=== PATIENT | female | born 1975 | race American Indian/Alaskan Native ===

== ENCOUNTER 2018-01-19 10:10 | Emergency (ER) | payer OTHER ==
[2018-01-19 10:17] VITALS: BP 144/92
--- NOTE | 2018-01-19 10:48 | Emergency Department Report ---
ED General Adult HPI - General Chief complaint: High BP Stated complaint: HEADACHE/HYPERTENSIVE Time Seen by Provider: 01/19/18 10:32 Source: patient Mode of arrival: Ambulatory Limitations: No Limitations - History of Present Illness Initial comments: Patient is a 42-year-old female who was diagnosed with borderline hypertension several years ago but is not on any meds. Patient states she went to work yesterday and after arrival she started having some tension type headache and bilateral frontal and temporal area. Patient states the headache was approximately a 4 out of 10 and is has improved since. 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 Patient denies any chest pain shortness of breath fevers chills nausea vomiting at this time. - Related Data Previous Rx's Medication Instructions Recorded Last Taken Type Amlodipine Besylate [Norvasc] 5 mg PO DAILY #30 tablet 01/19/18 Unknown Rx Allergies Allergy/AdvReac Type Severity Reaction Status Date / Time No Known Allergies Allergy Unverified 01/19/18 10:12 ED Review of Systems ROS: Stated complaint: HEADACHE/HYPERTENSIVE Other details as noted in HPI Comment: All other systems reviewed and negative ED Past Medical Hx - Past Medical History Previous Medical History?: No - Surgical History Past Surgical History?: Yes Hx Cholecystectomy: Yes (2006) Additional Surgical History: tubal ligation 1999 - Social History Smoking Status: Current Every Day Smoker Substance Use Type: Alcohol - Medications Home Medications: Home Medications Medication Instructions Recorded Confirmed Last Taken Type Amlodipine Besylate [Norvasc] 5 mg PO DAILY #30 tablet 01/19/18 Unknown Rx ED Physical Exam - General Limitations: No Limitations General appearance: alert, in no apparent distress - Head Head exam: Present: atraumatic, normocephalic - Eye Eye exam: Present: normal appearance - ENT ENT exam: Present: mucous membranes moist - Neck Neck exam: Present: normal inspection - Respiratory Respiratory exam: Present: normal lung sounds bilaterally. Absent: respiratory distress, wheezes, rales, rhonchi - Cardiovascular Cardiovascular Exam: Present: regular rate, normal rhythm. Absent: systolic murmur, diastolic murmur, rubs, gallop - GI/Abdominal GI/Abdominal exam: Present: soft, normal bowel sounds. Absent: distended, tenderness, guarding - Extremities Exam Extremities exam: Present: normal inspection - Back Exam Back exam: Present: normal inspection - Neurological Exam Neurological exam: Present: alert, oriented X3 - Psychiatric Psychiatric exam: Present: normal affect, normal mood - Skin Skin exam: Present: warm, dry, intact, normal color. Absent: rash ED Course Vital Signs 01/19/18 10:12 Temperature 98.8 F Pulse Rate 91 H Respiratory 16 Rate Blood Pressure 144/92 O2 Sat by Pulse 100 Oximetry ED Medical Decision Making - Medical Decision Making Patient states she is on admission appointment to see primary care physician in approximately 2 weeks and patient will be started on Norvasc 5 mg have her blood pressure rechecked at that time. Critical care attestation.: If time is entered above; I have spent that time in minutes in the direct care of this critically ill patient, excluding procedure time. ED Disposition Clinical Impression: Hypertensive urgency Disposition: DC-01 TO HOME OR SELFCARE Is pt being admited?: No Does the pt Need Aspirin: No Condition: Stable Prescriptions: Amlodipine Besylate [Norvasc] 5 mg PO DAILY #30 tablet Referrals: PRIMARY CARE, [Primary Care Provider] - 7-10 days
== END 2018-01-19 10:48 | disposition home or self-care (01) ==
LOC: ED 10:10
DX: I10 Essential (primary) hypertension (principal); F17.200 Nicotine dependence, unspecified, uncomplicated; Z98.51 Tubal ligation status; Z90.49 Acquired absence of other specified parts of digestive tract
CPT/HCPCS: 99282

== ENCOUNTER 2019-02-20 09:02 | Emergency (ER) | payer OTHER ==
[2019-02-20] MEDS ORDERED: IBUPROFEN PO ONE (09:34)
--- NOTE | 2019-02-20 10:16 | Emergency Department Report ---
ED Lower Extremity HPI - General Chief Complaint: Extremity Injury, Lower Stated Complaint: TWISTE LT ANKLE Time Seen by Provider: 02/20/19 09:33 Source: patient Mode of arrival: Ambulatory Limitations: No Limitations - History of Present Illness Initial Comments: 43 0 female presents to the emergency room complaining of right ankle pain after twisting her ankle and falling. Patient reports a small abrasion to the outer side of her ankle. Patient denies any fever or chills no nausea no vomiting. Patient is able to ambulate but with pain. Patient has past medical history of hypertension currently on lisinopril. It was noted the patient's blood pressure was elevated at 169/107. MD Complaint: ankle injury -: This morning Injury: Ankle: Right Type of Injury: inversion Place: street/outdoors Severity scale (0 -10): 8 Improves With: immobilization Worsens With: weight bearing Other Symptoms: loss of consciousness - Related Data Previous Rx's Medication Instructions Recorded Last Taken Type Amlodipine Besylate [Norvasc] 5 mg PO DAILY #30 tablet 02/20/19 Unknown Rx Ibuprofen [Motrin 600 MG tab] 600 mg PO Q8H PRN #15 tablet 02/20/19 Unknown Rx Allergies Allergy/AdvReac Type Severity Reaction Status Date / Time No Known Allergies Allergy Unverified 01/19/18 10:12 ED Review of Systems ROS: Stated complaint: TWISTE LT ANKLE Other details as noted in HPI Comment: All other systems reviewed and negative ED Past Medical Hx - Past Medical History Previous Medical History?: Yes Hx Hypertension: Yes - Surgical History Past Surgical History?: Yes Hx Cholecystectomy: Yes (2006) Additional Surgical History: tubal ligation 1999. right lumpectomy - Social History Smoking Status: Current Every Day Smoker Substance Use Type: None - Medications Home Medications: Home Medications Medication Instructions Recorded Confirmed Last Taken Type Amlodipine Besylate [Norvasc] 5 mg PO DAILY #30 tablet 02/20/19 Unknown Rx Ibuprofen [Motrin 600 MG tab] 600 mg PO Q8H PRN #15 tablet 02/20/19 Unknown Rx ED Physical Exam - General Limitations: No Limitations General appearance: alert, in no apparent distress - Head Head exam: Present: atraumatic, normocephalic - Eye Eye exam: Present: normal appearance - ENT ENT exam: Present: mucous membranes moist - Neck Neck exam: Present: normal inspection, full ROM - Expanded Lower Extremity Exam Right Hip exam: Present: full ROM, tenderness Knee exam: Present: normal inspection Ankle exam: Present: full ROM, tenderness (lateral malleolus), swelling (lateral malleolus) Neuro vascular tendon exam: Present: no vascular compromise ED Course Vital Signs 02/20/19 09:07 Temperature 98.5 F Pulse Rate 93 H Respiratory 18 Rate Blood Pressure 169/107 O2 Sat by Pulse 100 Oximetry ED Lower Extremity MDM - Radiology Data Radiology results: report reviewed Patient: SANFORD SMITH MR#: [id number] : 1975 Acct:[id number] Age/Sex: 43 / F ADM Date: 02/20/19 Loc: ED Attending Dr: Ordering Physician: SHERWIN LACKEY Date of Service: 02/20/19 Procedure(s): XR ankle 2V RT Accession Number(s): [id number] cc: SHERWIN LACKEY Fluoro Time In Minutes: RIGHT ANKLE, 2 VIEWS INDICATION: Acute ankle pain and swelling from twisting.. COMPARISON: None. IMPRESSION: Mild lateral soft tissue swelling is suspected. No acute osseous abnormality is identified. Moderate plantar spur is noted. No significant DJD. Signer Name: Harinder Berger Jr, MD Signed: 02/20/2019 10:27 AM Workstation Name: [id number] Transcribed By: TTR Dictated By: HARINDER BERGER JR, MD Electronically Authenticated By: HARINDER BERGER JR, MD Signed Date/Time: 02/20/19 1027 DD/ 1024 TD/TT: - Medical Decision Making Patient has been evaluated by this provider fast accident 43-year-old female comes in for right ankle pain after twisting her ankle and falling. X-ray is ordered pain medication has been ordered. Results from x-ray.. Critical care attestation.: If time is entered above; I have spent that time in minutes in the direct care of this critically ill patient, excluding procedure time. ED Disposition Clinical Impression: Moderate right ankle sprain, HTN, goal below 130/80 Disposition: DC-01 TO HOME OR SELFCARE Is pt being admited?: No Does the pt Need Aspirin: No Condition: Stable Instructions: Ankle Sprain (ED), Ankle Stirrup Splint (ED), Hypertension (ED) Additional Instructions: Take pain medication as needed. Well-nourished stirrup for your ankle. Follow- up with orthopedic provider if his symptoms persist or gets worse. Prescriptions: Ibuprofen [Motrin 600 MG tab] 600 mg PO Q8H PRN #15 tablet PRN Reason: Pain , Severe (7-10) Amlodipine Besylate [Norvasc] 5 mg PO DAILY #30 tablet Referrals: MAUDE JIMÉNEZ MD [Primary Care Provider] - 3-5 Days CARLIE PARK MD [Staff Physician] - 3-5 Days Forms: Work/School Release Form(ED)
--- NOTE | 2019-02-20 10:31 | XRay Report ---
RIGHT ANKLE, 2 VIEWS INDICATION: Acute ankle pain and swelling from twisting.. COMPARISON: None. IMPRESSION: Mild lateral soft tissue swelling is suspected. No acute osseous abnormality is identifi ed. Moderate plantar spur is noted. No significant DJD. Signer Name: Harinder Berger Jr, MD Signed: 02/20/2019 10:27 AM Workstation Name: [id number]
[2019-02-20 10:47] VITALS: BP 157/95
== END 2019-02-20 10:47 | disposition home or self-care (01) ==
LOC: ED 09:02
DX: S93.401A Sprain of unspecified ligament of right ankle, initial encounter (principal); I10 Essential (primary) hypertension; F17.200 Nicotine dependence, unspecified, uncomplicated; Z79.1 Long term (current) use of non-steroidal anti-inflammatories (NSAID); Z90.49 Acquired absence of other specified parts of digestive tract; Z98.51 Tubal ligation status; Z98.890 Other specified postprocedural states; W01.198A Fall on same level from slipping, tripping and stumbling with subsequent striking against other object, initial encounter; Y93.89 Activity, other specified; Y92.488 Other paved roadways as the place of occurrence of the external cause; Y99.8 Other external cause status
CPT/HCPCS: 99283

== ENCOUNTER 2020-02-21 07:45 | Emergency (ER) | payer OTHER ==
[2020-02-21 07:55] VITALS: BP 165/108
--- NOTE | 2020-02-21 08:30 | XRay Report ---
RIGHT ANKLE 3 VIEWS 8:10 AM INDICATION: trauma, pain, swelling. COMPARISON: One year prior FINDINGS: There is diffuse soft tissue swelling, greatest laterally. No acute, displaced fracture or dislocatio n is seen. Tibiotalar joint effusion is noted. No foreign bodies. IMPRESSION: 1. Soft tissue swelling. No acute fracture is seen. Signer Name: Aaron Gonzales MD Signed: 02/21/2020 8:25 AM Workstation Name: [id number]
--- NOTE | 2020-02-21 09:23 | Emergency Department Report ---
ED Extremity Problem HPI - General Chief complaint: Extremity Injury, Lower Stated complaint: RIGHT ANKLE PAIN Time Seen by Provider: 02/21/20 09:11 Source: patient Mode of arrival: Ambulatory Limitations: No Limitations - History of Present Illness Initial comments: 44-year-old female with a past medical history of hypertension (noncompliant with meds x30 days) and previous right ankle injury presents to the hospital planing of pain and swelling to right ankle x3 days. Patient had accidental inversion injury while walking 3 days ago. She has had pain and swelling since. She has been attempting ice, heat, ambulated with crutches, and trying to rest the extremity without improvement. Patient took Motrin 600 mg prior to arrival which has been helping with pain at home. - Related Data Previous Rx's Medication Instructions Recorded Last Taken Type Amlodipine Besylate [Norvasc] 5 mg PO DAILY #30 tablet 02/21/20 Unknown Rx Ibuprofen [Motrin 600 MG tab] 600 mg PO Q8H PRN #20 tablet 02/21/20 Unknown Rx Allergies Allergy/AdvReac Type Severity Reaction Status Date / Time No Known Allergies Allergy Unverified 01/19/18 10:12 ED Review of Systems ROS: Stated complaint: RIGHT ANKLE PAIN Other details as noted in HPI Comment: All other systems reviewed and negative ED Past Medical Hx - Past Medical History Previous Medical History?: Yes Hx Hypertension: Yes - Surgical History Past Surgical History?: Yes Hx Cholecystectomy: Yes (2006) Additional Surgical History: tubal ligation 1999. right lumpectomy - Social History Smoking Status: Current Every Day Smoker Substance Use Type: Marijuana - Medications Home Medications: Home Medications Medication Instructions Recorded Confirmed Last Taken Type Amlodipine Besylate [Norvasc] 5 mg PO DAILY #30 tablet 02/21/20 Unknown Rx Ibuprofen [Motrin 600 MG tab] 600 mg PO Q8H PRN #20 tablet 02/21/20 Unknown Rx ED Physical Exam - General Limitations: No Limitations - Other Other exam information: General: No acute distress Head: Atraumatic Eyes: normal appearance ENT: Moist mucous membranes Neck: Normal appearance, no midline tenderness Chest: Clear to auscultation bilaterally CV: Regular rate and rhythm Abdomen: Soft, normal bowel sounds, nontender, nondistended, no rebound or guarding Back: Normal inspection Extremity: Diffuse right ankle swelling with tenderness laterally and across the anterior ankle. 2+ DP pulse. Full range of motion although painful with movement. No warmth or erythema Neuro: Alert O x 3, no facial asymmetry, speech clear, no gross motor sensory deficit Psych: Appropriate behavior Skin: No rash ED Course Vital Signs 02/21/20 02/21/20 07:54 09:25 Temperature 98.6 F Pulse Rate 109 H 78 Respiratory 16 Rate Blood Pressure 165/108 O2 Sat by Pulse 99 100 Oximetry ED Medical Decision Making - Radiology Data Radiology results: report reviewed RIGHT ANKLE 3 VIEWS 8:10 AM INDICATION: trauma, pain, swelling. COMPARISON: One year prior FINDINGS: There is diffuse soft tissue swelling, greatest laterally. No acute, displaced fracture or dislocation is seen. Tibiotalar joint effusion is noted. No foreign bodies. IMPRESSION: 1. Soft tissue swelling. No acute fracture is seen. - Medical Decision Making Patient presents with right ankle swelling x3 days. No fracture on x-ray. Diagnosis of ankle sprain. Patient presented to the ED with her own crutches. Santosh wrap and ice pack provided. Outpatient orthopedic follow-up advised. Refill and Norvasc prescribed. hr improved to the 78 prior to d/c Critical Care Time: No Critical care attestation.: If time is entered above; I have spent that time in minutes in the direct care of this critically ill patient, excluding procedure time. ED Disposition Clinical Impression: Right ankle sprain, Chronic hypertension, Medication refill Disposition: TO HOME OR SELFCARE Is pt being admited?: No Does the pt Need Aspirin: No Condition: Stable Instructions: Ankle Sprain (ED), Hypertension (ED) Additional Instructions: Take the medication as prescribed. Follow-up with your doctor or doctor/clinic provided. Return if symptoms worsen as indicated by your discharge instructions. Prescriptions: Ibuprofen [Motrin 600 MG tab] 600 mg PO Q8H PRN #20 tablet PRN Reason: Pain , Severe (7-10) Amlodipine Besylate [Norvasc] 5 mg PO DAILY #30 tablet Referrals: PRIMARY CARE, [Primary Care Provider] - 3-5 Days CARLIE PARK MD [Staff Physician] - 7-10 days (Orthopedic doctor) DAVIN STILES MD [Staff Physician] - 3-5 Days (Primary care doctor) Forms: Work/School Release Form(ED) Time of Disposition: 09:25
== END 2020-02-21 10:00 | disposition home or self-care (01) ==
LOC: ED 07:45
DX: S93.401A Sprain of unspecified ligament of right ankle, initial encounter (principal); I10 Essential (primary) hypertension; Z76.0 Encounter for issue of repeat prescription; F17.200 Nicotine dependence, unspecified, uncomplicated; F12.10 Cannabis abuse, uncomplicated; Z90.49 Acquired absence of other specified parts of digestive tract; Z98.51 Tubal ligation status; Z79.1 Long term (current) use of non-steroidal anti-inflammatories (NSAID); Z79.899 Other long term (current) drug therapy; X58.XXXA Exposure to other specified factors, initial encounter; Y93.01 Activity, walking, marching and hiking; Y92.89 Other specified places as the place of occurrence of the external cause; Y99.8 Other external cause status
CPT/HCPCS: 99283